=== PATIENT | male | born 1990 | race Hispanic/Latino ===

== ENCOUNTER 2018-08-30 16:16 | Outpatient (RCR) | payer OTHER | END 2018-09-25 | LOC: PT 16:16 | PROVIDERS: ATTEND Specialist | DX: M25.862 Other specified joint disorders, left knee (principal); M25.861 Other specified joint disorders, right knee; M62.81 Muscle weakness (generalized); R26.89 Other abnormalities of gait and mobility; R26.81 Unsteadiness on feet ==